=== PATIENT | female | born 1980 | race Caucasian/White ===

== ENCOUNTER 2018-10-20 11:27 | Emergency (ER) | payer BC ==
[2018-10-20] MEDS ORDERED: Morphine 2 MG/ML Syringe IVPUSH ONE (11:41)
[2018-10-20] MEDS ORDERED: Sodium Chloride 0.9% 1,000 ML IV ONE (11:41)
[2018-10-20] MEDS ORDERED: Ondansetron 4 MG/2 ML SDV IVPUSH ONE (11:41)
--- NOTE | 2018-10-20 11:41 | EDM.PDOC ---
ED HPI GENERAL MEDICAL PROBLEM - General Chief Complaint: General Stated Complaint: PAIN IN STOMACH Time Seen by Provider: 10/20/18 11:41 Source of Information: Reports: Patient History Limitations: Reports: No Limitations - History of Present Illness INITIAL COMMENTS - FREE TEXT/NARRATIVE: HISTORY AND PHYSICAL: History of present illness: Patient is a 38-year-old female who presents to the emergency room with complaints of pelvic pain. Patient reports that she was at the [facility] for an endometrial biopsy due to dysfunctional uterine bleeding. States she had a period for a month and a half and therefore further evaluating the cause of this. She states at 10 AM she had the biopsy and had felt well. As she was discharged to home she started having some suprapubic pelvic pain. She started having severe pain within 30 minutes of leaving the clinic. Patient denies any fever, chills, headache, change in vision, syncope or near syncope. Denies any chest pain, back pain, shortness of breath or cough. Denies any abdominal pain, nausea, vomiting, diarrhea, constipation or dysuria. Has not noted any blood in urine or stool. Patient has been eating and drinking appropriately. Review of systems: As per history of present illness and below otherwise all systems reviewed and negative. Past medical history: As per history of present illness and as reviewed below otherwise noncontributory. Surgical history: As per history of present illness and as reviewed below otherwise noncontributory. Social history: See social history for further information Family history: As per history of present illness and as reviewed below otherwise noncontributory. Physical exam: General: Well-developed and well-nourished 38 year old female. Alert and oriented. Patient is curled up in the position she states that her abdominal pain is severe. She appears semi-anxious and uncomfortable. Appears nontoxic. HEENT: Atraumatic, normocephalic, pupils equal and reactive bilaterally, negative for conjunctival pallor or scleral icterus, mucous membranes moist, TMs normal bilaterally, throat clear, neck supple, nontender, trachea midline. No drooling or trismus noted. No meningeal signs. No hot potato voice noted. Lungs: Clear to auscultation, breath sounds equal bilaterally, chest nontender. Heart: S1S2, regular rate and rhythm without overt murmur Abdomen: Soft, nondistended, nontender. Negative for masses or hepatosplenomegaly. Negative for costovertebral tenderness. Pelvis: Stable nontender. Genitourinary: Deferred. Rectal: Deferred. Skin: Intact, warm, dry. No lesions or rashes noted. Extremities: Atraumatic, moves all extremities per self with difficulty or deficits, negative for cords or calf pain. Neurovascular unremarkable. Neuro: Awake, alert, oriented. Cranial nerves II through XII unremarkable. Cerebellum unremarkable. Motor and sensory unremarkable throughout. Exam nonfocal. Notes: Patient had a procedure prior to arrival. The clinic had done a UA and hCGU which were negative. Lab work is unremarkable. No acute findings within the abdomen or pelvis. There is diverticulosis without evidence of diverticulitis. Patient did receive some Benadryl after her CT scan as she states she did have some itching post IV contrast. Findings were shared with the patient. She states she feels improved. We discussed need for appropriate follow-up with her GR[facility] C[facility]IER. Supportive care measures were reviewed and discussed. Voices understanding and is agreeable to plan of care. Denies any further questions or concerns at this time. Diagnostics: CBC, CMP, UA, CT abdomen and pelvis Therapeutics: IV fluids, Zofran, Morphine Prescription: [place] (#[id number]) Impression: Pelvic pain post biopsy Plan: 1. Tylenol and/or ibuprofen as needed for pain management. 2. Follow-up with your GROCERY C[facility]IER as we discussed. Return to the ED as needed and as discussed. Definitive disposition and diagnosis as appropriate pending reevaluation and review of above. Pelvic Pain Score (Numeric/FACES): 10 - Related Data Allergies Allergy/AdvReac Type Severity Reaction Status Date / Time amoxicillin Allergy Hives Verified 10/20/18 11:36 Home Meds: Home Meds Cyclobenzaprine [Flexeril] 5 mg PO DAILY 10/20/18 [History] Propranolol [Inderal] 60 mg PO DAILY 10/20/18 [History] metFORMIN [Glucophage] 500 mg PO DAILY 10/20/18 [History] ED ROS GENERAL - Review of Systems Review Of Systems: ROS reveals no pertinent complaints other than HPI. ED EXAM, GENERAL - Physical Exam Exam: See Below (See dictation) Course - Vital Signs Last Recorded V/S: Last Vital Signs Temp 97.6 F 10/20/18 11:38 Pulse 78 10/20/18 13:17 Resp 14 10/20/18 13:17 BP 148/84 H 10/20/18 13:17 Pulse Ox 96 10/20/18 13:17 - Orders/Labs/Meds Orders: Active Orders 24 hr Category Date Time Status EKG 12 Lead [EKG Documentation Completion] [RC] ROUTINE Care 10/20/18 11:48 Active UA W/SHITAL RFLX IF INDICATED [URIN] Stat Lab 10/20/18 11:27 Received Labs: Laboratory Tests 10/20/18 10/20/18 Range/Units 11:30 11:30 WBC 8.33 (4.0-11.0) K/uL RBC 4.22 L (4.30-5.90) M/uL Hgb 12.2 (12.0-16.0) g/dL Hct 37.7 (36.0-46.0) % MCV 89.3 (80.0-98.0) fL MCH 28.9 (27.0-32.0) pg MCHC 32.4 (31.0-37.0) g/dL RDW Std Deviation 44.0 (28.0-62.0) fl RDW Coeff of Lois 14 (11.0-15.0) % Plt Count 294 (150-400) K/uL MPV 11.20 (7.40-12.00) fL Neut % (Auto) 51.1 (48.0-80.0) % Lymph % (Auto) 37.1 (16.0-40.0) % Chase % (Auto) 10.6 (0.0-15.0) % Eos % (Auto) 1.0 (0.0-7.0) % Baso % (Auto) 0.2 (0.0-1.5) % Neut # (Auto) 4.3 (1.4-5.7) K/uL Lymph # (Auto) 3.1 H (0.6-2.4) K/uL Chase # (Auto) 0.9 H (0.0-0.8) K/uL Eos # (Auto) 0.1 (0.0-0.7) K/uL Baso # (Auto) 0.0 (0.0-0.1) K/uL Nucleated RBC % 0.0 /100WBC Nucleated RBCs # 0 K/uL Sodium 140 (136-145) mmol/L Potassium 3.7 (3.5-5.1) mmol/L Chloride 103 (98-107) mmol/L Carbon Dioxide 24.7 (21.0-32.0) mmol/L BUN 13 (7.0-18.0) mg/dL Creatinine 1.0 (0.6-1.0) mg/dL Est Cr Clr Drug Dosing 69.98 mL/min Estimated GFR (MDRD) > 60.0 ml/min Glucose 121 H (74-106) mg/dL Calcium 8.8 (8.5-10.1) mg/dL Total Bilirubin 0.4 (0.2-1.0) mg/dL AST 11 L (15-37) IU/L ALT 33 (14-63) IU/L Alkaline Phosphatase 76 (46-116) U/L Total Protein 7.5 (6.4-8.2) g/dL Albumin 3.7 (3.4-5.0) g/dL Globulin 3.8 (2.6-4.0) g/dL Albumin/Globulin Ratio 1.0 (0.9-1.6) Meds: Medications Discontinued Medications Generic Name Dose Route Start Last Admin Trade Name Freq PRN Reason Stop Dose Admin Diphenhydramine HCl 50 mg 10/20/18 12:54 10/20/18 13:16 Benadryl IVPUSH 10/20/18 12:55 50 mg ONETIME ONE Administration Sodium Chloride 1,000 mls @ 999 mls/hr 10/20/18 11:41 10/20/18 11:50 Normal Saline IV 10/20/18 12:41 999 mls/hr STAT ONE Administration Iopamidol 100 ml 10/20/18 13:05 10/20/18 13:06 Isovue Multipack-370 (76%) IVPUSH 10/20/18 13:06 100 ml ONETIME STA Administration Morphine Sulfate 2 mg 10/20/18 11:41 10/20/18 11:51 Morphine IVPUSH 10/20/18 11:42 2 mg ONETIME ONE Administration Ondansetron HCl 4 mg 10/20/18 11:41 10/20/18 11:50 Zofran IVPUSH 10/20/18 11:42 4 mg ONETIME ONE Administration Departure - Departure Time of Disposition: 13:43 Disposition: Home, Self-Care 01 Clinical Impression: Pelvic pain - Discharge Information Referrals: PCP,Unknown [Primary Care Provider] - Forms: ED Department Discharge Additional Instructions: The following information is given to patients seen in the emergency department who are being discharged to home. This information is to outline your options for follow-up care. We provide all patients seen in our emergency department with a follow-up referral. The need for follow-up, as well as the timing and circumstances, are variable depending upon the specifics of your emergency department visit. If you don't have a primary care physician on staff, we will provide you with a referral. We always advise you to contact your personal physician following an emergency department visit to inform them of the circumstance of the visit and for follow-up with them and/or the need for any referrals to a consulting specialist. The emergency department will also refer you to a specialist when appropriate. This referral assures that you have the opportunity for follow-up care with a specialist. All of these measure are taken in an effort to provide you with optimal care, which includes your follow-up. Under all circumstances we always encourage you to contact your private physician who remains a resource for coordinating your care. When calling for follow-up care, please make the office aware that this follow-up is from your recent emergency room visit. If for any reason you are refused follow-up, please contact the [facility] Emergency Department at and asked to speak to the emergency department charge nurse. [facility] [address] [place] [id number] [facility] [address] [place] [id number] 1. Tylenol and/or ibuprofen as needed for pain management. 2. Follow-up with your GROCERY CASHIER as we discussed. Return to the ED as needed and as discussed. - My Orders Last 24 Hours: My Active Orders 10/20/18 11:27 UA W/SHITAL RFLX IF INDICATED [URIN] Stat 10/20/18 11:48 EKG 12 Lead [EKG Documentation Completion] [RC] ROUTINE - Assessment/Plan Last 24 Hours: My Active Orders 10/20/18 11:27 UA W/SHITAL RFLX IF INDICATED [URIN] Stat 10/20/18 11:48 EKG 12 Lead [EKG Documentation Completion] [RC] ROUTINE
[2018-10-20 12:13] LABS: CHLORIDE,CL 103 mmol/L (98-107); SODIUM,NA 140 mmol/L (136-145)
[2018-10-20] MEDS ORDERED: diphenhydrAMINE 50 MG/ML SDV IVPUSH ONE (12:54)
[2018-10-20] MEDS ORDERED: Iopamidol 755 MG/ML 500 ML Multipack Bottle IVPUSH STA (13:05)
--- NOTE | 2018-10-20 13:33 | CT ---
CT of the abdomen and pelvis with contrast. HISTORY: Endometrial Biopsy TECHNIQUE: Axial CT images were obtained of the abdomen and pelvis following administration of 100 mL of Isovue-370 in the right antecubital fossa without complication. Coronal and sagittal reconstructions obtained. FINDINGS: The lung bases are clear, no pleural effusion. Minimal dependent atelectasis. The liver, spleen, adrenal glands, and pancreas appear normal. The gallbladder is normal. There is no bulky retroperitoneal lymphadenopathy or abdominal ascites. The kidneys enhance and function symmetrically without evidence of obstructive uropathy. The large and small bowel are normal in caliber without evidence of obstruction. Moderate sigmoid diverticulosis without evidence of diverticulitis. The appendix is normal. There is no bulky retroperitoneal lymphadenopathy or abdominal ascites. The urinary bladder is normal. There are no suspicious osseous abnormalities identified. IMPRESSION: 1. No acute findings within the abdomen or pelvis. 2. Diverticulosis without evidence of diverticulitis.
== END 2018-10-20 14:12 | disposition home or self-care (01) ==
LOC: MW.ED 11:27
DX: R10.2 Pelvic and perineal pain (principal); Z79.899 Other long term (current) drug therapy; Z88.1 Allergy status to other antibiotic agents
CPT/HCPCS: 36415; 74177; 80053; 81001; 85025; 93005; 96361; 96374; 96375; 99284; J1200; J2270; J2405; J7040; Q9967